=== PATIENT | female | born 1960 | race Hispanic/Latino ===

== ENCOUNTER 2017-05-29 05:48 | Day surgery (SDC) | payer BC, OTHER ==
[~2017-05-29] VITALS: Ht 167.6 cm; Wt 76.1 kg
[2017-05-29 06:18] VITALS: BP 108/71
[2017-05-29] MEDS ORDERED: SODIUM CHLORIDE 0.9% 1000ML 1,000 ML IV ONE ×2 (06:43→06:46)
[2017-05-29] MEDS ORDERED: PROPOFOL 1000 MG/100 ML 100 ML IV ONE (06:46)
[2017-05-29 07:52] VITALS: BP 86/50
== END 2017-05-29 08:25 ==
LOC: DAH 05:48
PROVIDERS: ATTEND Internal Medicine Gastroenterology
PROC: 0DJD8ZZ Inspection of Lower Intestinal Tract, Via Natural or Artificial Opening Endoscopic (ICD-10-PCS; principal; 2017-05-29)
DX: Z12.11 Encounter for screening for malignant neoplasm of colon (principal); K21.9 Gastro-esophageal reflux disease without esophagitis; E66.9 Obesity, unspecified; Z68.33 Body mass index [BMI] 33.0-33.9, adult; Z79.899 Other long term (current) drug therapy; Z83.71 Family history of colonic polyps
CPT/HCPCS: 45378; A4606; J2704; J7030